=== PATIENT | female | born 1935 | race Caucasian/White ===

== ENCOUNTER → 2016-11-13 | Outpatient (CLI) | payer MEDICARE, MEDICAID ==
[~2016-11-13] MED LIST: AMLO5TAB2 PO; GABA-336 PO; HYDR25TA PO; LABE100T PO; LEVO100T4 PO; LORA0.5T86 PO; LOVA20TA3 PO; MEPE50TA2 PO; POTA10CA37 PO; SULF1TAB42 PO
--- NOTE | 2016-11-13 12:35 | DI ---
Indication: ITS.REASON: M54.5 LBP PROCEDURE: MRI LUMBAR SPINE W/O CONTRAST: Encounter: Initial Comparison: None Technique: Multiplanar multisequence MR imaging of the lumbar spine was performed without contrast. Findings: Prior surgery with posterior decompression and fusion at L4-S1. Degenerative grade 1 anterolisthesis of L3 on L4. Axial images are severely degraded by motion artifact. Other sequences also show moderate motion artifact. There is levoscoliosis also present. No acute fracture identified. The conus medullaris terminates normally at L1-L2. There is partial bony fusion of the L4-L5 and L5-S1 disk spaces. The paraspinal soft tissues are poorly evaluated due to the severe motion artifact. Segmental analysis: L1-L2: Degenerative facet hypertrophy and ligamentum flavum thickening contributing to mild central canal narrowing. Degenerative facet disease contributing to mild to moderate bilateral neural foraminal narrowing. L2-L3: Degenerative facet disease without focal disk herniation. Mild central canal narrowing. Minimal left neural foraminal narrowing. No significant right foraminal narrowing. L3-L4: Disk height loss, listhesis, broad-based disk bulge, degenerative facet hypertrophy and ligamentum flavum thickening results in very severe central canal stenosis and obliteration of the thecal sac. Severe compression of the traversing nerve roots. There is also severe right and mild to moderate left neural foraminal stenosis. L4-L5: Posterior decompression. No neural foraminal stenosis. L5-S1: Posterior decompression. No focal disk protrusion or neural foraminal narrowing. Impression: Limited exam due to motion artifact. 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 .
== END ==
LOC: IMA 10:06
PROVIDERS: ATTEND Family Medicine
DX: M48.06 Spinal stenosis, lumbar region (principal); Z98.1 Arthrodesis status